=== PATIENT | male | born 1990 | race Caucasian/White ===

== ENCOUNTER 2018-12-09 15:02 | Inpatient (IN) | payer MEDICAID, SELFPAY ==
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
[2018-12-09 16:37] VITALS: BMI 20.5
--- NOTE | 2018-12-09 16:54 | CASEMGMT ---
Social Work Note Carissa with [place] informed this worker that pt has court date tomorrow and will need medical excuse faxed to [place] [employer] [address] ([phone]) Attn: Juan Clarke. SW met with pt, introduced self and role at [facility]. Pt is alert and orientated x4, pt signed release of medical records authorization form and placed on pt's chart. SW completed court document and faxed to [facility] [address]. Hanna Mac SAWMILL SUPERVISOR, CAST IRON DIPPER
[2018-12-09 16:56] VITALS: BP 106/64; PULSE 84; RESP 18; TEMP 36.7
[2018-12-09] MEDS: Buprenorphine HCl 2 MG TAB.SUBL SL (18:24)
[2018-12-09] MEDS: Pramipexole Di-HCl 0.25 MG Tablet PO (18:24)
[2018-12-09] MEDS: Methocarbamol 750 MG Tablet PO (18:25)
[2018-12-09] MEDS: hydrOXYzine PAM 25 MG Capsule 50 MG PO (18:25)
[2018-12-09] MEDS: cloNIDine HCl 0.1 MG Tablet PO ×2 (18:25→22:16)
[2018-12-09] MEDS: Dicyclomine 10 MG Capsule 20 MG PO (18:25)
[2018-12-09 18:40] LABS: Absolute Lymphocyte Count 1.46 X10^3/ul (0.83-4.51); Absolute Neutrophil Count 3.6 X10^3/uL (2.0-7.7); Basophil# 0.02 X10^3/uL; Basophil% 0.4 % (0-1); Eosinophil# 0.15 X10^3/uL; Eosinophils% 2.7 % (0-5); Hematocrit 41.2 % (40-54); Hemoglobin 14.1 g/dl (13.0-16.5); Lymphocyte # 1.46 X10^3/ul (4.0); Lymphocyte % 26.3 % (19-41); Mean Corp Hgb Conc 34.2 g/gl (32-36); Mean Corpuscular Volume 81.7 fL (80-94); Mean Platelet Vol. 8.7 fl (6.2-12.0); Monocyte# 0.33 X10^3/uL; Monocyte% 5.9 % (0-10); Neutrophil # 3.59 X10^3/uL (2.7-7.7); Neutrophil % 64.5 % (47-70); Platelet Count 252 K/mm3 (150-450); RBC Distribution Width CV 13.3 % (11.6-14.6); RBC Distribution Width SD 39.9 fl (35.1-43.9); Red Blood Count 5.04 M/mm3 (4.6-6.2); White Blood Count 5.6 K/mm3 (4.4-11.0)
[2018-12-09 19:24] LABS: AST(SGOT) 15 U/L (15-37); Alanine Aminotransfer ALT/SGPT 19 U/L (16-61); Albumin, Serum 3.7 g/dL (3.2-5.0); Alkaline Phosphatase 72 U/L (45-117); Anion Gap 3 (5-15); BUN 14 mg/dL (7-18); BUN/Creat Ratio 16.3 RATIO (10-20); Calcium,Total 8.8 mg/dL (8.5-10.1); Chloride 102 mmol/L (98-107); Creatinine, Serum 0.86 mg/dL (0.70-1.30); EST Glomerular Filtration Rate 111 mL/min (>60); Est Glom Filt Rate - Afr Amer 134 mL/min (>60); Estimated Creatinine Clearance 115.23 ml/min; Globulin 3.8 g/dL (2.2-4.2); Glucose 73 mg/dL (74-106); Potassium 3.9 mmol/L (3.5-5.1); Protein, Total 7.5 g/dL (6.4-8.2); Sodium Level 139 mmol/L (136-145)
[2018-12-09 20:06] LABS: POSITIVE COUNT NO; POSITIVE DIFFERENTIAL NO; POSITIVE MORPHOLOGY NO
[2018-12-09 22:08] VITALS: BP 112/67; PULSE 80; RESP 14; TEMP 37.2; O2SAT 97
[2018-12-09] MEDS: Ondansetron ODT 4 MG Tablet PO (22:16)
[2018-12-09] MEDS: traZODone 50 MG Tablet PO (22:16)
[2018-12-10 01:28] VITALS: BP 110/68; PULSE 60; RESP 14; TEMP 37.1
[2018-12-10] MEDS: Buprenorphine HCl 2 MG TAB.SUBL SL ×3 (01:31→18:03)
[2018-12-10 05:38] VITALS: BP 112/70; PULSE 63; RESP 16; TEMP 36.5
[2018-12-10] MEDS: Dicyclomine 10 MG Capsule 20 MG PO (05:44)
[2018-12-10] MEDS: hydrOXYzine PAM 25 MG Capsule 50 MG PO ×2 (05:52→21:21)
[2018-12-10 06:43] LABS: Amphetamine Urine VISTA POSITIVE (<1000 ng/mL); Barbiturate Urine VISTA NEGATIVE (< 200 ng/mL); Benzodiazepine Urine VISTA NEGATIVE (< 200 ng/mL); Cocaine Urine VISTA NEGATIVE (< 300 ng/mL); Ecstacy Urine VISTA POSITIVE (< 500 ng/mL); Methadone Urine VISTA NEGATIVE (< 300 ng/mL); PCP Urine VISTA NEGATIVE (< 25 ng/mL); THC Urine VISTA POSITIVE (< 50 ng/mL); Vista UDS pH Range 6
[2018-12-10 09:59] VITALS: BP 111/51; PULSE 62; RESP 16; TEMP 36.6
[2018-12-10] MEDS: cloNIDine HCl 0.1 MG Tablet PO ×4 (10:02→21:21)
--- NOTE | 2018-12-10 12:58 | PCM.PROGNOTE ---
Patient Problems: Active and Suspected Problems Heroin withdrawal (Acute) Subjective: Pt resting comfortably in bed. Current complaints include fatigue and all over body aches. Otherwise doing well feels the subutex is working well. - Physical Exam General: Alert, Oriented x3, Cooperative HEENT: Atraumatic, PERRLA, EOMI, Normocephalic Neck: Supple, No JVD, Negative Carotid Bruits Lungs: Clear to auscultation, Normal air movement Cardiovascular: Regular rate, No murmurs Abdomen: Bowel Sounds Present, Soft, Non Tender Extremities: No edema, Capillary Refill Less than 3 Seconds Skin: No rashes, No breakdown Musculoskeletal: No Tenderness to Palpation of Joints or Extremities Neurological: Cranial nerves II-XII grossly intact Psych/Mental Status: Normal Affect, Appropriate, Alert and oriented to time, place, person, mood and affect Vital Signs Temp Pulse Resp BP Pulse Ox 97.8 F 62 16 111/51 L 97 12/10/18 09:59 12/10/18 09:59 12/10/18 09:59 12/10/18 09:59 12/09/18 22:08 Oxygen Delivery Method Room Air Weight: 143 lb Body Mass Index (BMI) 20.5 Intake and Output for Last 24 Hours 12/08/18 12/09/18 12/10/18 23:59 23:59 23:59 Intake Total 968 / 968 Balance 968 / 968 Laboratory Tests Past 24 Hrs 12/09/18 12/09/18 12/10/18 18:30 18:30 05:47 WBC 5.6 RBC 5.04 Hgb 14.1 Hct 41.2 MCV 81.7 MCH 28.0 MCHC 34.2 RDW 13.3 RDW Differential 39.9 Plt Count 252 MPV 8.7 Immature Gran % (Auto) 0.200 Neut % (Auto) 64.5 Lymph % (Auto) 26.3 Whiteside % (Auto) 5.9 Eos % (Auto) 2.7 Baso % (Auto) 0.4 Absolute Neuts (auto) 3.6 Absolute Lymphs (auto) 1.46 Sodium 139 Potassium 3.9 Chloride 102 Carbon Dioxide 34.0 H Anion Gap 3 L BUN 14 Creatinine 0.86 Estim Creat Clear Calc 115.23 Est GFR (MDRD) Af Amer 134 Est GFR (MDRD) Non-Af 111 BUN/Creatinine Ratio 16.3 Glucose 73 L Calcium 8.8 Total Bilirubin 0.30 AST 15 ALT 19 Alkaline Phosphatase 72 Total Protein 7.5 Albumin 3.7 Globulin 3.8 Albumin/Globulin Ratio 1.0 Urine Opiates Screen NEGATIVE Urine Methadone Screen NEGATIVE Ur Barbiturates Screen NEGATIVE Ur Phencyclidine Scrn NEGATIVE Ur Amphetamines Screen POSITIVE H U Methamphetamin-MDMA POSITIVE H U Benzodiazepines Scrn NEGATIVE Urine Cocaine Screen NEGATIVE U Cannabinoids Screen POSITIVE H Ur Drug Screen Comment Medical Necessity - Tobacco Use Smoking Status: Current every day smoker Tobacco Use: Cigarettes Assessment/Plan All Active Problems Heroin withdrawal (Acute) 1. Acute heroin withdrawal - 1 g / day user. Current symptoms fatigue, Initiate subutex taper and prn medical stabilization therapy. 2. Polysubstance abuse - opiates, meth, marijuana, nicotine 3. Nicotine abuse - patch 4. HTN - resume outpatient catapres pending vitals. - BP well controlled. He has received 3 doses of this while here. Would likely benefit from restarting this scheduled at discharge. 5. Anxiety/Depression/PTSD/ADHD - does not appear this is treated with medication. Needs outpatient referral to psychiatry. 6. Hx Hep C - untreated. LTFs normal. DVT ppx: early ambulation DC planning: Inpatient rehab at [place] Medical stabilization day 2 of 4. This patient was seen by Kenneth Lima PA-C under the supervision of Dr. Amaya
[2018-12-10 14:00] VITALS: BP 115/75; PULSE 73; RESP 18; TEMP 36.9
[2018-12-10] MEDS: Methocarbamol 750 MG Tablet PO (14:36)
[2018-12-10 17:59] VITALS: BP 124/80; PULSE 75; RESP 16; TEMP 36.9
[2018-12-10] MEDS: Ibuprofen 600 MG Tablet PO (18:02)
[2018-12-10] MEDS: traZODone 50 MG Tablet PO (21:21)
[2018-12-10 21:22] VITALS: BP 104/62; PULSE 72; RESP 18; TEMP 37.1
[2018-12-10 22:08] LABS: HIV - WCH Non-Reactive (Nonreactive)
[2018-12-11] VITALS (7 sets, daily range): BP systolic 98–112; BP diastolic 60–77; PULSE 61–82; RESP 16–18; TEMP 36.4–37.2; O2SAT 98–99
[2018-12-11] MEDS: Buprenorphine HCl 2 MG TAB.SUBL SL ×3 (02:07→21:23)
[2018-12-11] MEDS: Methocarbamol 750 MG Tablet PO ×2 (07:35→14:15)
[2018-12-11] MEDS: hydrOXYzine PAM 25 MG Capsule 50 MG PO ×2 (07:35→14:15)
[2018-12-11] MEDS: Ondansetron ODT 4 MG Tablet PO (07:35)
--- NOTE | 2018-12-11 09:15 | NEWVISION ---
Patient being picked up at [facility] by referral source [facility] at 10am.
--- NOTE | 2018-12-11 14:04 | PN_ITS ---
Patient Problems: Active and Suspected Problems Heroin withdrawal (Acute) Subjective: No acute issues. Agreeable to inpatient rehab in [place]. C/o lethargy. No irritation at injection sites. No abdominal pain. No fever/chills. - Physical Exam General: Alert, Oriented x3, Cooperative HEENT: Atraumatic, PERRLA, EOMI, Normocephalic Neck: Supple, No JVD, Negative Carotid Bruits Lungs: Clear to auscultation, Normal air movement Cardiovascular: Regular rate, No murmurs Abdomen: Bowel Sounds Present, Soft, Non Tender Extremities: No edema, Capillary Refill Less than 3 Seconds Skin: No rashes, No breakdown Musculoskeletal: No Tenderness to Palpation of Joints or Extremities Neurological: Cranial nerves II-XII grossly intact Psych/Mental Status: Normal Affect, Appropriate, Alert and oriented to time, place, person, mood and affect Vital Signs Temp Pulse Resp BP Pulse Ox 97.6 F L 61 18 112/62 98 12/11/18 07:31 12/11/18 07:31 12/11/18 07:31 12/11/18 07:31 12/11/18 07:31 Oxygen Delivery Method Room Air Weight: 143 lb Body Mass Index (BMI) 20.5 Intake and Output for Last 24 Hours 12/09/18 12/10/18 12/11/18 23:59 23:59 23:59 Intake Total 1768 / 1768 360 / 360 Balance 1768 / 1768 360 / 360 Laboratory Tests Past 24 Hrs 12/09/18 12/11/18 18:30 05:18 Hepatitis A IgM Ab Pending Hepatitis A Ab Total Pending Hep Bs Antigen Pending Hep B Core Total Ab Pending Hep B Core IgM Ab Pending HIV 1&2 Antibody Non-Reactive Medical Necessity - Tobacco Use Smoking Status: Current every day smoker Tobacco Use: Cigarettes Assessment/Plan All Active Problems Heroin withdrawal (Acute) 1. Acute heroin withdrawal - 1 g / day user. Current symptoms fatigue. Continue subutex taper and prn medical stabilization therapy. 2. Polysubstance abuse - opiates, meth, marijuana, nicotine 3. Nicotine abuse - patch 4. HTN - [place] catapres [place] - BP well controlled. He has received 3 doses of this while here. Would likely benefit from restarting this scheduled at discharge. 5. Anxiety/Depression/PTSD/ADHD - does not appear that this is treated with medication. Needs outpatient referral to psychiatry. 6. Hx Hep C - untreated. LTFs normal. DVT ppx: early ambulation DC planning: Inpatient rehab at [place] Medical stabilization day 3 of 4. This patient was seen by Kenneth Lima PA-C under the supervision of Dr. Coombs
[2018-12-11] MEDS: Pramipexole Di-HCl 0.25 MG Tablet PO (14:15)
[2018-12-11] MEDS: cloNIDine HCl 0.1 MG Tablet PO ×2 (14:15→19:52)
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
--- NOTE | 2018-12-11 16:01 | CHAPLAIN ---
Type of Pastoral Visit _x__ Initial Visit ___ Follow-up Visit ___ On-call Visit ___ General Patient Visit ___ Spiritual Assessment ___ Family Conference ___ Bereavement ___ Rapid Response ___ Code Blue ___ Other (describe below) Pastoral Care Referral From _x__ Patient ___ Family ___ Nurse ___ Physician ___ Cableway Operator ___ Conduit Worker ___ Other (describe below) Sacrament/Intervention _x__ Active listening ___ Anointing ___ Caodaism ___ Bereavement ___ Communion _x__ Odalys exploration ___ _x__ Life review _x__ Prayer ___ Reconciliation ___ Sacrament of Sick _x__ Supportive presence ___ Wedding _x__ Other (describe below) Pastoral Comments patient very willing to talk about himself and his desire for help; pt has very limited support from father only; 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 but acknowledges need to break free from addiction; pt states he has no pentecostal connection but believes in God and is willing to explore what this might mean for his life; pt says that family has pentecostal heritage and states that is my best help; pt says he is going to sober house in [place] that is a odalys based organization and willing to give it a try; pt is open to emotional and spiritual support and prayer; pt request is for help with his legal problems in [place]; pt is hopeful that sober house is an acceptable alternative to detention time; addressed this request with MAR Abraham who will follow up with pt and give assistance for this need
[2018-12-11] MEDS: AMOXICILLIN 500 MG CAPSULE PO ×2 (17:01→21:23)
[2018-12-11] MEDS: traZODone 50 MG Tablet PO (21:23)
[2018-12-12 02:00] VITALS: RESP 16
[2018-12-12 02:10] VITALS: BP 116/69; PULSE 60; RESP 16; TEMP 36.8; O2SAT 99
[2018-12-12 04:07] LABS: HEPATITIS B SURFACE AG Negative (Negative); Hepatitis A AB, Total Positive (Negative); Hepatitis A IgM Antibody Negative (Negative); Hepatitis B Core AB IgM Negative (Negative); Hepatitis B Core Ab Total Negative (Negative); Hepatitis C Ab >11.0 s/co ratio (0.0-0.9)
[2018-12-12] MEDS: AMOXICILLIN 500 MG CAPSULE PO (05:37)
[2018-12-12 05:40] VITALS: BP 116/69; PULSE 60; RESP 16; TEMP 36.8
[2018-12-12 07:35] VITALS: BP 120/71; PULSE 68; RESP 16; TEMP 36.9; O2SAT 99
[2018-12-12] MEDS: hydrOXYzine PAM 25 MG Capsule 50 MG PO (07:40)
[2018-12-12] MEDS: cloNIDine HCl 0.1 MG Tablet PO (07:40)
[2018-12-12 07:43] VITALS: BP 120/71; PULSE 68; RESP 16; TEMP 36.9
--- NOTE | 2018-12-12 08:48 | DCINST_ITS ---
- Discharge Diagnoses Current Active Problems: Current Active and Chronic Problems Heroin withdrawal (Acute) Nicotine abuse (Chronic) PTSD (post-traumatic stress disorder) (Chronic) Anxiety (Chronic) Depression (Chronic) Methamphetamine abuse (Chronic) HTN (hypertension) (Chronic) Hepatitis C (Chronic) ADHD (Chronic) You will use the following diet at home:: No restrictions Discharge Activity: Return to Normal Activity Call your doctor if you observe: Shortness of breath, Dizziness, Fainting spells, Chest pain Allergies/Adverse Reactions: Allergies No Known Allergies Allergy (Verified 12/09/18 16:44) Medications to take at Discharge Amoxicillin [Amoxil] 500 mg PO Q8 #27 cap 12/12/18 The following prescriptions were given: Amoxicillin [Amoxil] 500 mg PO Q8 #27 cap Prescription Printed Please follow up with your Primary Care Physician in: PCP-1 Week following DC from Rehab facility Test Results: Test results from this visit will be discussed in further detail at your follow- up appointment, if applicable. Please Follow Up With: Cosme Urban When: Report at scheduled Proposed Discharge Date: 12/12/18
--- NOTE | 2018-12-12 08:56 | DS.PCM_ITS ---
Discharge Date and Diagnosis Date of Admission: 12/09/18 Date of Discharge: 12/12/18 - Primary Discharge Diagnosis Active and Suspected Problems 1. Acute heroin withdrawal 2. Polysubstance abuse 3. Nicotine dependence 4. Hypertension 5. Anxiety/Depression/PTSD/ADHD 6. History of hepatitis C, untreated 7. Possible dental infection - Secondary Discharge Diagnosis Chronic Problems Nicotine abuse (Chronic) PTSD (post-traumatic stress disorder) (Chronic) Anxiety (Chronic) Depression (Chronic) Methamphetamine abuse (Chronic) HTN (hypertension) (Chronic) Hepatitis C (Chronic) ADHD (Chronic) Hospital Course and Treatment Operations: None Procedures: None Summary of Care Provided: The patient is a 28 year old M admitted 12/09/18 for acute heroin withdrawal. 1. Acute heroin withdrawal-medical stabilization per protocol during admission with Subutex taper and as needed regimen for somatic complaints. Patient plans for inpatient rehab facility following discharge from hospital. 2. Polysubstance abuse-urine tox positive for amphetamines, methamphetamine, cannabinoids. 3. Nicotine dependence-encourage smoking cessation. 4. Hypertension-controlled during admission without antihypertensive. Continue to monitor as outpatient. 5. Anxiety/Depression/PTSD/ADHD-recommend outpatient follow-up. 6. History Hep C, untreated-outpatient follow-up when sobriety is maintained for 6 months. 7. Possible dental infection-patient reports significant tooth pain in the area of broken tooth. No significant jaw swelling or redness. Placed on amoxicillin empirically which he will continue for total of 10 days of therapy. Follow-up with dentist as soon as possible. Patient seen and examined prior to discharge. Physical assessment as noted below. Patient is stable for discharge with follow up recommendations as noted above. This patient was seen by ELENA Estrella under the supervision of Dr. Coombs. - Physical Exam General: Alert, Oriented x3, Cooperative HEENT: Atraumatic, PERRLA, EOMI, Normocephalic Neck: Supple, No JVD, Negative Carotid Bruits Lungs: Clear to auscultation, Normal air movement Cardiovascular: Regular rate, Regular Rhythm, Normal S1, Normal S2, No murmurs Abdomen: Bowel Sounds Present, Soft, Non Tender, Non-Distended Extremities: No clubbing, No cyanosis, No edema, Capillary Refill Less than 3 Seconds Skin: No rashes, No breakdown Musculoskeletal: No Tenderness to Palpation of Joints or Extremities Neurological: Cranial nerves II-XII grossly intact, Neuro grossly intact Psych/Mental Status: Normal Affect, Appropriate Vital Signs Temp Pulse Resp BP Pulse Ox 98.5 F 68 16 120/71 99 12/12/18 07:43 12/12/18 07:43 12/12/18 07:43 12/12/18 07:43 12/12/18 07:35 Oxygen Delivery Method Room Air Weight: 143 lb Body Mass Index (BMI) 20.5 Intake and Output for Last 24 Hours 12/10/18 12/11/18 12/12/18 23:59 23:59 23:59 Intake Total 1768 / 1768 840 / 1240 1080 / 1080 Balance 1768 / 1768 840 / 1240 1080 / 1080 Discharge Diet: No Restrictions Discharge Activity: Return to Normal Activity Call your doctor if you observe: Shortness of breath, Dizziness, Fainting spells, Chest pain Home Medications: Medications to take at Discharge Amoxicillin [Amoxil] 500 mg PO Q8 #27 cap 12/12/18 Following Prescrptions Were Given to Patient: Amoxicillin [Amoxil] 500 mg PO Q8 #27 cap Prescription Printed Please follow up with your Primary Care Physician in: PCP-1 Week following DC from Rehab facility Please Follow Up With: [facility] When: Report at scheduled Disposition: Home Minutes spent on discharge:: 35 Patient Condition:: Stable Medical Necessity - Tobacco Use Smoking Status: Current every day smoker Tobacco Use: Cigarettes Meaningful Use Info Meaningful Use Diagnoses (Choose all that apply): None applicable
[2018-12-12] MEDS: Buprenorphine HCl 2 MG TAB.SUBL SL (09:45)
[2018-12-12 11:50] LABS: Hep B Surface Antibodies Reactive (.)
== END 2018-12-12 09:47 | disposition home or self-care (01) | DRG 773 ==
PROVIDERS: Internal Medicine; Physician Assistant; Admitting Provider Student in an Organized Health Care Education/Training Program; Visit Provider Internal Medicine
DX: F11.23 Opioid dependence with withdrawal (principal); I10 Essential (primary) hypertension; F17.210 Nicotine dependence, cigarettes, uncomplicated; F12.10 Cannabis abuse, uncomplicated; F15.10 Other stimulant abuse, uncomplicated; F32.9 Major depressive disorder, single episode, unspecified; F43.10 Post-traumatic stress disorder, unspecified; F41.9 Anxiety disorder, unspecified; F90.9 Attention-deficit hyperactivity disorder, unspecified type; K04.7 Periapical abscess without sinus; B19.20 Unspecified viral hepatitis C without hepatic coma
CPT/HCPCS: 36415; 80053; 80307; 85025; 86703; 86704; 86705; 86706; 86708; 86709; 86803; 87340; 99406

== ENCOUNTER 2023-08-30 11:52 | Inpatient (IN) | payer MEDICAID, SELFPAY ==
[2023-08-30 11:54] VITALS: BP 142/94; PULSE 90; RESP 14; TEMP 36.1; O2SAT 97; BMI 24.3
--- NOTE | 2023-08-30 12:13 | EDS_ITS ---
<Statement entered by Glenys Malagon MD - 08/30/23 15:49> I have personally performed a face to face assessment of the patient and have reviewed the SRAVANI Note. Patient presents requesting help with detox from fentanyl. He states has been shooting up fentanyl several times a day for several years. He reports he has been through detox programs before but has not been here in several years. Patient denies any other alcohol or drug use. He does admit that he was seen in the past and tested positive for methamphetamine, but he states as far as he knows he only uses fentanyl. He does acknowledge that there may be other drugs mixed with the fentanyl that he is unaware of. Patient sitting upright in bedside chair. He is in no acute distress, appropriate, and polite. Head and neck examination unremarkable. Heart is regular rate and rhythm. Lung sounds are clear. Abdomen is soft and nontender. Neuro exam normal. The rules of the detox program were reviewed with the patient and he did agree. He was given a nicotine patch. Labwork obtained and hospitalist contacted for admission. HPI History of Present Illness Chief Complaint: Substance Abuse Narrative Narrative: Patient is a 33-year-old male with history of hepatitis C who uses fentanyl up to 2 to 3 g a day, this equates to 10 times a day that he shoots up with IV needles. Patient states that the last time he seek care was 1 year ago. Patient states that he is generally exhausted. He wants to stop. He currently has a job and is having difficulty performing his duties. He is here for evaluation. He used 5 to 6 hours prior to arrival. [facility] Home Medications amoxicillin 500 mg capsule 500 mg PO Q8 #27 caps 12/12/18 [Rx Last Taken Unknown] Allergy/AdvReac Type Severity Reaction Status Date / Time No Known Allergies Allergy Verified 08/30/23 11:53 Social History Smoking Status: Current every day smoker ROS ROS ED ROS Narrative Constitutional: Negative for fever, chills, weight loss, weakness Eyes: Negative for vision loss, vision change, double vision ENT: Negative for any sore throat, ear pain, congestion Cardiovascular: Negative for any chest pain, tightness, palpitations Respiratory: Negative for any cough, sputum production, hemoptysis, dyspnea, dyspnea on exertion, orthopnea Gastrointestinal: Negative for any abdominal pain, vomiting, diarrhea, constipation, blood in stool, blood in vomit. Positive for nausea : Negative for any urinary frequency, dysuria, retention, blood in urine Muscle skeletal: Negative for any neck pain, back pain Neurological: Negative for any headache, syncope, dizziness Skin: Negative for any rashes, itching, abrasions, lacerations Psychiatric: Negative for any depression, anxiety, stress, suicidal ideation, homicidal ideation Hematologic: Negative for any excessive bruising, easy bleeding EXAM Physical Exam Narrative Exam Narrative: Vital signs reviewed. HEET: Head normocephalic atraumatic, TMs clear bilaterally. Posterior pharynx is clear, moist mucous membranes. Nares clear bilaterally. Neck: Supple with no lymphadenopathy or tenderness. No signs of meningismus. Cardiac: Regular rate and rhythm no murmurs gallops or rubs, equal peripheral pulses bilaterally. Respiratory: Lungs clear to auscultation bilaterally. No chest tenderness. Abdomen: Soft, nontender, nondistended. No abdominal bruit or pulsatile masses. No hepatosplenomegaly Extremities: No peripheral edema, no signs of gross trauma or deformity. Active full range of motion of all extremities. Neuro: Cranial nerves II through XII intact, no focal neurological deficits. Skin: Clean dry and intact with no rash, purpura, petechiae, vesicles or pustules. Backs/flank: No CVA tenderness, no midline spinal tenderness, no deformity. Psych: Normal mood and affect. No SI, HI or acute psychosis. Const Vital Signs: 08/30/23 11:54 Temperature 97 F L Temperature Source Temporal Pulse Rate 90 Respiratory Rate 14 Blood Pressure 142/94 H Blood Pressure Mean 110 Pulse Ox 97 Oxygen Delivery Method Room Air Positive well nourished and well developed General Appearance ED: well developed MDM MDM Lab Data Labs: Laboratory Results - last 24 hr 08/30/23 08/30/23 12:55 13:00 WBC 7.0 RBC 4.96 Hgb 13.5 Hct 39.7 L MCV 80.0 MCH 27.2 MCHC 34.0 RDW Std Deviation 36.8 RDW Coeff of Mejia 12.9 Plt Count 342 MPV 8.6 Immature Gran % (Auto) 0.700 Neut % (Auto) 65.8 Lymph % (Auto) 22.2 [place] % (Auto) 8.5 Eos % (Auto) 1.9 Baso % (Auto) 0.9 Absolute Neuts (auto) 4.6 Absolute Lymphs (auto) 1.54 Nucleated RBC % 0 Sodium 137 Potassium 3.9 Chloride 105 Carbon Dioxide 29.0 Anion Gap 3 L BUN 12 Creatinine 0.86 Estim Creat Clear Calc 123.79 Est GFR (MDRD) Af Amer 130 Est GFR (MDRD) Non-Af 107 BUN/Creatinine Ratio 13.9 Glucose 106 Calcium 9.3 Total Bilirubin 0.30 Direct Bilirubin 0.10 AST 25 ALT 33 Alkaline Phosphatase 83 Total Protein 8.0 Albumin 3.9 Globulin 4.1 Urine Opiates Screen NEGATIVE Urine Methadone Screen NEGATIVE Ur Barbiturates Screen NEGATIVE Ur Phencyclidine Scrn NEGATIVE Ur Amphetamines Screen POSITIVE H MDMA (Ecstasy) Screen POSITIVE H U Benzodiazepines Scrn NEGATIVE Urine Cocaine Screen NEGATIVE U Cannabinoids Screen NEGATIVE Ur Drug Screen Comment Ethyl Alcohol < 3.0 Treatment and Re-Evaluation :: Differential diagnosis includes however is not limited to: Opiate withdrawal, anxiety, depression, concern for overdose, nausea and vomiting Patient appears to be in no obvious respiratory distress, vital signs are stable, patient appears nontoxic. Presenting to the emergency department with concern for fentanyl withdrawal, would like detox from fentanyl. Patient will receive the laboratory values as well as urine drug screen. Patient not homicidal suicidal. Patient CBC was unremarkable, BMP and alcohol are currently in testing, patient does not appear intoxicated. Patient in the past has been positive for cannabis and amphetamines. I spoke with hospitalist who is agreeable for admission. Patient remained stable. Patient's chemistries were unremarkable, CBC was unremarkable, patient's toxicology did show amphetamines, ecstasy. Patient stable for admission. Discharge Plan Dx/Rx/DC Orders Clinical Impression: Acute opioid withdrawal, Desire for detoxification Disposition Disposition: Acute Care Hospital [facility]
[2023-08-30 13:07] LABS: Absolute Lymphocyte Count 1.54 X10^3/uL (0.83-4.51); Absolute Neutrophil Count 4.6 X10^3/uL (2.0-7.7); Basophil# 0.06 X10^3/uL; Basophil% 0.9 % (0-1); Eosinophil# 0.13 X10^3/uL; Eosinophils% 1.9 % (0-5); Hematocrit 39.7 % (40-54); Hemoglobin 13.5 g/dL (13.0-16.5); Lymphocyte # 1.54 X10^3/ul (0.83-4.51); Lymphocyte % 22.2 % (19-41); Mean Corpuscular Hgb 27.2 pg (27.0-32.0); Mean Platelet Vol. 8.6 fl (6.2-12.0); Monocyte# 0.59 X10^3/uL; Monocyte% 8.5 % (0-10); NRBC Flagged by Analyzer 0 % (0-5); Neutrophil # 4.58 X10^3/uL (2.7-7.7); Neutrophil % 65.8 % (47-70); Platelet Count 342 K/mm3 (150-450); RBC Distribution Width CV 12.9 % (11.6-14.6); RBC Distribution Width SD 36.8 fl (35.1-43.9); Red Blood Count 4.96 M/mm3 (4.6-6.2)
--- NOTE | 2023-08-30 13:12 | HP.PCM.HOS_ITS ---
HPI - General General Date of Admission: 08/30/23 Date of Service: 08/30/23 Chief Complaint: Acute opioid withdrawal syndrome HPI Narrative KAREN HUBBARD, is a 33 M with history of chronic IVDA/opioid use disorder came to ED for opioid withdrawal symptoms. Patient uses 2 to 3 mg of IV fentanyl every day or cocktail with opioids. Patient stated he did not use opioids for about 2 about several weeks ago and he had severe upper drawl symptoms including anxiety/panic attack, shivering, tremors, restlessness, hallucinations, insomnia and felt like that he is going to . Therefore at this time he came to ED so that he does not go on severe withdrawal. His last dose was about 3 to 4 hours ago before coming to ED. In ED started having restlessness anxiety but denied hallucinations, palpitation or diarrhea. Patient also smokes a pack per day cigarettes. Denies other substance use. Patient has history of chronic hep C and wanted information for treatment. There is discussed in assessment and plan [facility] Home Medications amoxicillin 500 mg capsule 500 mg PO Q8 #27 caps 12/12/18 [Rx Last Taken Unknown] Allergy/AdvReac Type Severity Reaction Status Date / Time No Known Allergies Allergy Verified 08/30/23 11:53 Social History Smoking Status: Current every day smoker tobacco type: cigarettes ROS ROS Narrative Constitutional: Reports mild fatigue. No fever. HEENT: Reports systems reviewed and no addt'l complaints, except as documented Respiratory/Chest: No acute shortness of breath or respiratory distress or wheezing. CVS: Denies chest pressure or tightness. Denies coronary artery disease. Gastrointestinal: Denies coffee ground emesis, hematemesis or vomiting Genitourinary: Denies burning urination or new urinary tract symptoms Musculoskeletal: Denies acute joint pain or limited range of motion. No acute injury Neurologic: Denies seizure-like symptoms. skin: No ulcer. No rash Endocrinology: Reports systems reviewed and no addt'l complaints, except as documented Hematologic/Lymphatic: Reports systems reviewed and no addt'l complaints, except as documented Rest 14 ROS are negative except as mentioned in HPI Vital Signs Vital Signs Vital Signs: 08/30/23 11:54 Temperature 97 F L Temperature Source Temporal Pulse Rate 90 Respiratory Rate 14 Blood Pressure 142/94 H Blood Pressure Mean 110 Pulse Ox 97 Oxygen Delivery Method Room Air Weight Weight: 169 lb 12.095 oz Body Mass Index (BMI) 24.3 Physical Exam Narrative General: Alert, Oriented x3, Cooperative HEENT: Atraumatic, PERRLA, EOMI, Normocephalic Oral: Oral mucosa dry. No Gingival or Mucosal Lesions/ Ulcerations Neck: Supple, No JVD, Negative Carotid Bruits Chest wall/Lungs: Air entry diminished in bilateral lung bases. No crepitation/rhonchi Cardiovascular: Regular rate, Regular Rhythm, Normal S1, Normal S2, No M/G/R Abdomen: Bowel Sounds Present, Soft, Non Tender, Non-Distended : No dysuria. No renal angle tenderness. No suprapubic tenderness. Extremities: Firm/hard cordlike antecubital vein in left arm. No edema, Capillary Refill Less than 3 Seconds Skin: No rashes, No breakdown Musculoskeletal: No Tenderness to Palpation of Joints or Extremities Neurological: Cranial nerves II-XII grossly intact, DTR 2+/4. No acute focal neurological deficit. Psych/Mental Status: Flat affect. Mild anxiety Results Lab / Micro Data 08/30/23 12:55 08/30/23 12:55 Labs: Laboratory Results - last 24 hr 08/30/23 12:55: WBC 7.0, RBC 4.96, Hgb 13.5, Hct 39.7 L, MCV 80.0, MCH 27.2, MCHC 34.0, RDW Std Deviation 36.8, RDW Coeff of Mejia 12.9, Plt Count 342, MPV 8.6, Immature Gran % (Auto) 0.700, Neut % (Auto) 65.8, Lymph % (Auto) 22.2, [place] % (Auto) 8.5, Eos % (Auto) 1.9, Baso % (Auto) 0.9, Absolute Neuts (auto) 4.6, Absolute Lymphs (auto) 1.54, Nucleated RBC % 0 08/30/23 13:00: Ur Drug Screen Comment Assessment & Plan Assessment/Plan (1) Acute opioid withdrawal: PLAN: Plan This 33 gentleman came to ED for acute opioid withdrawal symptoms 1. Acute opioid withdrawal syndrome with history of chronic opioid use/IVDA di sorgalina: Patient is being admitted on [facility] floor. The patient is started on buprenorphine along with other adjunctive medications as needed for medical stabilization as per order set of opioid withdrawal syndrome.Patient also on trazodone, hydroxyzine, gabapentin as needed ordered. Advised quitting opioid use. [facility] manager consult. 2. Chronic hepatitis C: From previous lab which shows patient has hep C antibody confirmed. Patient also has hep A total antibody positive but hep A IgM antibo dy negative therefore most likely chronic hepatitis A and patient might be immune. Discussed about the evaluation and management of chronic hepatitis C that it is outpatient management and advised to follow-up in GI clinic or ID clinic for further treatment. 3. Chronic nicotine use disorder/cigarette smoking: Patient on nicotine patch 4. Other psychiatric illnesses: Anxiety, depression, PTSD and ADHD: Patient not on antipsychotic medication as per home medications. Advised to follow-up [facility] counselor/psychiatrist for further evaluation. DVT prophylaxis: Low risk. No formal prophylaxis indicated but early ambulation encouraged Living will/advanced directive/end of life care: Patient does not have living will or advanced directive. I advised about formal completion of advanced directive with PCP and discussed about healthcare power of health care attorney. After discussion of benefits/risks procedures involved with full code, DNR CC arrest and DNR CC, the patient opted for full code. Patient does want artificial life support including intubation, tube feed, ventilator and/chest compression, central venous catheter, vasopressor and DC shock if needed Total time spent in [id number] encounter in discussion of advanced directive 17 minutes. Charges/Coding Visit Charges Inpatient E&M: 42858 Init Hosp L3 Procedures Hospitalists Procedures: 56007 Advncd Care Plan 30 Min
[2023-08-30 13:24] LABS: Anion Gap 3 (5-15); BUN 12 mg/dL (7-18); BUN/Creat Ratio 13.9 RATIO (10-20); Calcium,Total 9.3 mg/dL (8.5-10.1); Chloride 105 mmol/L (98-107); Creatinine, Serum 0.86 mg/dL (0.70-1.30); EST Glomerular Filtration Rate 107 mL/min (>60); Est Glom Filt Rate - Afr Amer 130 mL/min (>60); Estimated Creatinine Clearance 123.79 ml/min; Glucose 106 mg/dL (74-106); Potassium 3.9 mmol/L (3.5-5.1); Sodium Level 137 mmol/L (136-145)
[2023-08-30 13:29] LABS: Amphetamine Urine VISTA POSITIVE (<1000 ng/mL); Barbiturate Urine VISTA NEGATIVE (< 200 ng/mL); Benzodiazepine Urine VISTA NEGATIVE (< 200 ng/mL); Cocaine Urine VISTA NEGATIVE (< 300 ng/mL); Ecstacy Urine VISTA POSITIVE (< 500 ng/mL); Methadone Urine VISTA NEGATIVE (< 300 ng/mL); PCP Urine VISTA NEGATIVE (< 25 ng/mL); THC Urine VISTA NEGATIVE (< 50 ng/mL); Vista UDS pH Range 6
[2023-08-30 13:31] LABS: Alcohol, Blood (Medical)-Serum < 3.0 mg/dL
[2023-08-30 13:39] VITALS: BP 136/81; PULSE 77; RESP 18; TEMP 36.7; O2SAT 99
[2023-08-30 13:39] LABS: AST(SGOT) 25 U/L (15-37); Alanine Aminotransfer ALT/SGPT 33 U/L (16-61); Albumin, Serum 3.9 g/dL (3.2-5.0); Alkaline Phosphatase 83 U/L (45-117); Globulin 4.1 g/dL (2.2-4.2)
[2023-08-30 13:47] LABS: Prothrombin Time (Protime)PT. 12.9 SECONDS (11.7-14.9)
[2023-08-30 13:53] VITALS: BP 129/88; PULSE 77; RESP 18; O2SAT 94
[2023-08-30 15:14] VITALS: RESP 18; BMI 24.3
[2023-08-30 15:21] VITALS: BP 127/92; PULSE 78; RESP 18; TEMP 37.1; O2SAT 98
[2023-08-30] MEDS: hydrOXYzine PAM 25 MG Capsule 50 MG PO (17:35)
[2023-08-30] MEDS: Gabapentin 300 MG Capsule PO (17:35)
[2023-08-30] MEDS: Methocarbamol 750 MG Tablet PO (17:35)
[2023-08-30] MEDS: Buprenorphine HCl 2 MG TAB.SUBL 4 MG SL (18:47)
[2023-08-30] MEDS: cloNIDine HCl 0.1 MG Tablet PO (20:27)
[2023-08-30 20:31] VITALS: BP 138/73; PULSE 91; RESP 16; TEMP 36.9; O2SAT 100
[2023-08-31] MEDS: Buprenorphine HCl 2 MG TAB.SUBL 4 MG SL ×2 (02:28→09:48)
[2023-08-31] MEDS: Gabapentin 300 MG Capsule PO ×2 (02:32→11:48)
[2023-08-31] MEDS: Methocarbamol 750 MG Tablet PO ×2 (02:32→09:49)
[2023-08-31 02:35] VITALS: BP 120/79; PULSE 88; RESP 16; TEMP 36.3; O2SAT 100
[2023-08-31 09:40] VITALS: BP 95/67; PULSE 80; RESP 18; TEMP 36.6; O2SAT 100
[2023-08-31] MEDS: hydrOXYzine PAM 25 MG Capsule 50 MG PO (09:48)
--- NOTE | 2023-08-31 09:55 | PN_ITS ---
Subjective Subjective Patient seen and examined. He complained of tremors, cramps, nausea and increased sweating, all due to withdrawal. Review of systems is otherwise negative. Objective Data Objective Data Vital Signs: Vital Signs Temp Pulse Resp BP Pulse Ox O2 Del Method 98 F 80 18 95/67 100 Room Air 08/31/23 09:40 08/31/23 09:40 08/31/23 09:40 08/31/23 09:40 08/31/23 09:40 08/31/23 09:40 Oxygen Delivery Method Room Air Weight: 169 lb 12.095 oz Body Mass Index (BMI) 24.3 Intake & Output: Intake and Output for Last 24 Hours 08/29/23 08/30/23 08/31/23 23:59 23:59 23:59 Intake Total 1340 / 1340 200 / 200 Balance 1340 / 1340 200 / 200 Lab / Micro Data 08/30/23 12:55 08/30/23 12:55 Labs: Laboratory Results - last 24 hr 08/30/23 12:55: WBC 7.0, RBC 4.96, Hgb 13.5, Hct 39.7 L, MCV 80.0, MCH 27.2, MCHC 34.0, RDW Std Deviation 36.8, RDW Coeff of Mejia 12.9, Plt Count 342, MPV 8.6, Immature Gran % (Auto) 0.700, Neut % (Auto) 65.8, Lymph % (Auto) 22.2, [place] % (Auto) 8.5, Eos % (Auto) 1.9, Baso % (Auto) 0.9, Absolute Neuts (auto) 4.6, Ab solute Lymphs (auto) 1.54, Nucleated RBC % 0, Sodium 137, Potassium 3.9, Chloride 105, Carbon Dioxide 29.0, Anion Gap 3 L, BUN 12, Creatinine 0.86, Estim Creat Clear Calc 123.79, Est GFR (MDRD) Af Amer 130, Est GFR (MDRD) Non-Af 107, BUN/Creatinine Ratio 13.9, Glucose 106, Calcium 9.3, Total Bilirubin 0.30, Direct Bilirubin 0.10, AST 25, ALT 33, Alkaline Phosphatase 83, Total Protein 8.0, Albumin 3.9, Globulin 4.1, Ethyl Alcohol < 3.0 08/30/23 13:00: Urine Opiates Screen NEGATIVE, Urine Methadone Screen NEGATIVE, Ur Barbiturates Screen NEGATIVE, Ur Phencyclidine Scrn NEGATIVE, Ur Amphetamines Screen POSITIVE H, MDMA (Ecstasy) Screen POSITIVE H, U Benzodiazepines Scrn NEGATIVE, Urine Cocaine Screen NEGATIVE, U Cannabinoids Screen NEGATIVE, Ur Drug Screen Comment 08/30/23 13:25: PT 12.9, INR 1.0 Physical Exam Const alert Constitutional Narrative: in mild distress due to withdrawal symptoms. General Appearance: cooperative and well developed HEENT normocephalic, head/scalp atraumatic, moist oral mucous membranes and oropharynx normal Eyes PERRL and EOMs intact bilaterally Neck no lymphadenopathy and supple Lymph Lymphatic: no lymphedema noted Resp normal respiratory effort, normal air movement and clear to auscultation bilaterally Cardio regular rate, regular rhythm, S1 normal heart sound, S2 normal heart sound and no murmurs GI normal to inspection, nondistended, normoactive bowel sounds and soft to palpation Extremity normal capillary refill, no clubbing, cyanosis or edema and no calf tenderness General Extremity: no tenderness to palpation of joints or extremities Skin General Skin Exam: no breakdown Neuro CN's II-XII intact bilaterally, no focal motor deficits, no sensory deficits noted and deep tendon reflexes 2+ bilaterally Motor Exam: strength 5/5 throughout and general weakness Psych thought process normal, cooperative and affect normal Appearance: appropriate Assessment & Plan Assessment/Plan (1) Acute opioid withdrawal: PLAN: Plan #Acute opioid withdrawal * alcohol withdrawal protocol with buprenorphine * adjunctive meds for symptomatic relief * #Hepatitis C: treatment naive. To follow up with gastroenterology on outpatient basis. Patient counseled that he would need to be clean for at least months to qualify for treatment #chronic nicotine dependence: counseled to quit. Nicotine patch 21mg daily #Anxiety and depression; not on any medication. To follow up with PCP on outpatient basis. #PTSD and ADHD:not on any meds currently. To follow up with PCP on outpatient basis. DVT prophylaxis: low risk, encouraged to ambulate. Charges/Coding Visit Charges Inpatient E&M: 65162 Subs Hosp L2
[2023-08-31] MEDS: Dicyclomine 10 MG Capsule 20 MG PO (11:48)
[2023-08-31] MEDS: cloNIDine HCl 0.1 MG Tablet PO (11:48)
[2023-08-31] MEDS: Acetaminophen 500 MG Tablet PO (11:48)
[2023-08-31 11:50] VITALS: BP 136/89; PULSE 87; O2SAT 100
--- NOTE | 2023-08-31 12:08 | ADDICTION ---
Met with pt to complete RAMP assessments. Pt was A&OX4. Pt is reporting severe w/d symptoms and would like to leave AMA. He reports that I want this but I can not handle this. Pt was visibly restless, sweating, and anxious. Pt's nurse was notified.
--- NOTE | 2023-08-31 15:02 | DS.PCM_ITS ---
Providers Date of Admission: 08/30/23 Date of Discharge: 08/31/23 Primary Care Physician: No Primary Care Phys Reason For Visit: OPOID USE WITHDRAWAL Diagnosis Discharge Diagnosis (1) Acute opioid withdrawal: Status: Acute Code(s): F11.93 - Opioid use, unspecified with withdrawal Plan #Acute opioid withdrawal * alcohol withdrawal protocol with buprenorphine * adjunctive meds for symptomatic relief * #Hepatitis C: treatment naive. To follow up with gastroenterology on outpatient basis. Patient counseled that he would need to be clean for at least months to qualify for treatment #chronic nicotine dependence: counseled to quit. Nicotine patch 21mg daily #Anxiety and depression; not on any medication. To follow up with PCP on outpatient basis. #PTSD and ADHD:not on any meds currently. To follow up with PCP on outpatient basis. DVT prophylaxis: low risk, encouraged to ambulate. Medications at Discharge Home Medications amoxicillin 500 mg capsule 500 mg PO Q8 #27 caps 12/12/18 Hospital Course Operations None Procedures None Summary of Care Provided Minutes Spent on Discharge: 49 Hospital Course: Patient is a 33-year-old male with a past medical history as outlined which includes chronic opioid disorder who was admitted through the ED on 08/30/2023 with a complaint of acute opioid withdrawal. Patient uses IV fentanyl 2 or 3 times a day and said he had not used his drugs for about 2 weeks prior to admission. He started having severe withdrawal symptoms including shakes and tremors as well as restlessness, hallucinations and insomnia and felt he was go ing to . He therefore came into the ED for acute opioid withdrawal. Urine tox was positive for opiates. He was admitted and managed for acute opioid withdrawal. He was started on opioid withdrawal protocol. He was placed on buprenorphine. Patient was tolerating the detox protocol. He was seen on the morning of 08/31/2023 and said he still felt like he was having abdominal cramps and increased sweating as well as tremors due to the bradycardia. Review of symptoms otherwise negative. Patient was initially agreeable to stay but this hospitalist was subsequently notified in the afternoon on 08/31/2023 the patient was signing out AGAINST MEDICAL ADVICE. Patient was seen and examined Today. He complained of withdrawal symptoms as mentioned above. Review of systems otherwise negative. Labs and vitals reviewed. Physical Exam Const alert Constitutional Narrative: in mild distress due to withdrawal symptoms. General Appearance: cooperative and well developed HEENT normocephalic, head/scalp atraumatic, hearing grossly normal bilaterally, moist oral mucous membranes and oropharynx normal Mouth: oral and palatal mucosa normal Eyes PERRL, EOMs intact bilaterally and conjunctivae normal Neck no lymphadenopathy and supple Lymph Lymphatic: no lymphadenopathy noted and no lymphedema noted Resp normal respiratory effort, normal air movement and clear to auscultation bilaterally Cardio regular rate, regular rhythm, S1 normal heart sound, S2 normal heart sound and no murmurs GI normal to inspection, nondistended, normoactive bowel sounds and soft to palpation Extremity normal to inspection, full ROM, normal capillary refill, no clubbing, cyanosis or edema and no calf tenderness General Extremity: no tenderness to palpation of joints or extremities Skin no rashes or lesions noted General Skin Exam: no breakdown Neuro oriented x3, CN's II-XII intact bilaterally, moves all extremities, no focal m otor deficits, no sensory deficits noted and deep tendon reflexes 2+ bilaterally Sensorium / Orientation: awake and alert Motor Exam: strength 5/5 throughout and general weakness Psych thought process normal, cooperative and affect normal Appearance: appropriate Weight / BMI Weight Weight: 169 lb 12.095 oz Body Mass Index (BMI) 24.3 ABG / Lab / Microbiology Data 08/30/23 12:55 08/30/23 12:55 Meaningful Use Info Meaningful Use Diagnoses (Choose all that apply): None applicable Discharge Plan Admission Admit Date/Time: 08/30/23 13:07 Primary Reason for Your Visit: acute opioid withdrawal Attending Provider: Shantelle Goodwin Primary Care Provider: Care Physician,No Primary Consulting Providers: Parveen Darnell Discharge Orders/Prescriptions Prescriptions: No Action amoxicillin 500 MG capsule 500 mg PO Q8 Qty: 27 0RF Referrals / Follow Up: Care Physician,No Primary [Primary Care Provider] - Disposition Disposition (needs filled in before D/C Order can be placed): Against Medical Advice Charges/Coding Visit Charges Inpatient E&M: 88096 Disch Hosp >30min
== END 2023-08-31 12:00 | disposition left against medical advice (07) | DRG 770 ==
LOC: ED 13:12 → MS3 13:21
PROVIDERS: Nurse Practitioner; Admitting Provider Internal Medicine; Emergency Provider Emergency Medicine; Visit Provider Student in an Organized Health Care Education/Training Program
DX: F11.93 Opioid use, unspecified with withdrawal (principal); B18.2 Chronic viral hepatitis C; F17.210 Nicotine dependence, cigarettes, uncomplicated; Z53.29 Procedure and treatment not carried out because of patient's decision for other reasons
CPT/HCPCS: 80048; 80076; 80307; 80320; 85025; 85610; 99283; G0480